=== PATIENT | female | born 1965 | race African-American/Black ===

== ENCOUNTER 2018-07-16 20:10 | Emergency (ER) | payer OTHER ==
[2018-07-17] MEDS: morphine LIQ (10 MG/5 ML) CUP PO (01:40)
[2018-07-17] MEDS: KETOROLAC 15 MG INJ IM (01:41)
== END 2018-07-17 03:20 | disposition home or self-care (01) ==
LOC: FTE 07-17 03:20
DX: M54.5 Low back pain (principal)
CPT/HCPCS: 96372; 99284-25